=== PATIENT | female | born 1945 | race Hispanic/Latino ===

== ENCOUNTER 2019-01-29 16:21 | Inpatient (IN) | payer MEDICARE ==
[2019-01-29 23:44] LABS: Hematocrit 38.1 % (30.3-42.9); Hemoglobin 12.7 gm/dl (10.1-14.3); Mean Corpuscular HGB Conc 33 % (30-34); Mean Corpuscular Volume 96 fl (79-97); Platelet Count 303 K/mm3 (140-440); Red Blood Count 3.98 M/mm3 (3.65-5.03); Red Cell Distribution Width 16.9 % (13.2-15.2)
[2019-01-30 01:39] LABS: Basophils % (Manual) 0 % (0.0-1.8); Eosinophils % (Manual) 0 % (0.0-4.3); Total Cells Counted 100
[2019-01-30 01:40] LABS: RBC Morphology Normal
[2019-01-30 03:10] LABS: Alanine Aminotransferase 27 units/L (7-56); Albumin 3.5 g/dL (3.9-5); BUN/Creatinine Ratio 58; Blood Urea Nitrogen 35 mg/dL (7-17); Calcium 8.7 mg/dL (8.4-10.2); HDL Cholesterol 106 mg/dL (40-59); Hemolysis Index 4; LDL Cholesterol,Direct 115 mg/dL (50-130)
[2019-01-30] MEDS ORDERED: HALOPERIDOL LACTATE 5 MG/1 ML INJ IM PRN (04:50)
[2019-01-30] MEDS ORDERED: LORazepam 2 MG/ML VIAL IM PRN (04:50)
[2019-01-30] MEDS ORDERED: HALOPERIDOL 5 MG TAB PO PRN (04:50)
[2019-01-30] MEDS: LINAGLIPTIN 5 MG TAB PO SCH (08:42)
[2019-01-30] MEDS: ESCITALOPRAM 10 MG TAB PO SCH (09:42)
[2019-01-30] MEDS: NICOTINE 14 MG/24 HR PATCH TD SCH (09:43)
[2019-01-30] MEDS ORDERED: DULoxetine 30 MG CAP PO SCH (10:00)
[2019-01-30] MEDS ORDERED: clonazePAM 0.5 MG TAB PO SCH (10:00)
--- NOTE | 2019-01-30 11:52 | Consultation ---
History of Present Illness - Reason for Consult Consult date: 01/30/19 - History of Present Illness 73-year-old female past medical history COPD, atrial fibrillation and diabetes mellitus type 2 who presented to the [facility] psych floor with diagnosis of acute psychosis. Consultation has been called for management of the above medical problems. Patient denies any complaints. No chest pain or shortness of breath. No fever or chills. No cough or cold symptoms. Past History Past Medical History: atrial fib, COPD, diabetes Past Surgical History: No surgical history Social history: no significant social history Family history: no significant family history Medications and Allergies Allergies Allergy/AdvReac Type Severity Reaction Status Date / Time No Known Allergies Allergy Unverified 01/29/19 17:39 Home Medications Medication Instructions Recorded Confirmed Last Taken Type Apixaban [Eliquis] 5 mg PO BID 01/29/19 01/29/19 History Aspirin BABY CHEW TAB 81 mg PO DAILY 01/29/19 Unknown History Atorvastatin [Lipitor] 40 mg PO HS 01/29/19 Unknown History Benzonatate [Tessalon Perles] 01/29/19 Unknown History Diltiazem HCl [Tiazac] 240 mg PO DAILY 01/29/19 Unknown History Escitalopram Oxalate [Lexapro] 20 mg PO HS 01/29/19 Unknown History Levemir VIAL 10 units SUB-Q HS 01/29/19 Unknown History Minocin 100 mg PO BID 01/29/19 Unknown History Omeprazole 40 mg PO HS 01/29/19 Unknown History Potassium 10 meq PO DAILY 01/29/19 Unknown History Saccharomyces Boulardii [Probiotic] 150 mg PO DAILY 01/29/19 Unknown History Sitagliptin Phosphate [Januvia] 100 mg PO HS 01/29/19 Unknown History predniSONE [Deltasone] 50 mg PO DAILY 01/29/19 Unknown History Active Meds: Active Medications Clonazepam (Klonopin) 0.5 mg PO BID [facility] Last Admin: 01/30/19 09:42 Dose: 0.5 mg Documented by: Duloxetine HCl (Cymbalta) 60 mg PO QDAY [facility] Last Admin: 01/30/19 09:42 Dose: 60 mg Documented by: Escitalopram Oxalate (Lexapro) 10 mg PO QDAY [facility] Last Admin: 01/30/19 09:42 Dose: 10 mg Documented by: Haloperidol (Haldol) 5 mg PO Q6H PRN PRN Reason: Agitation Haloperidol Lactate (Haldol) 5 mg IM Q6H PRN PRN Reason: Agitation Linagliptin (Tradjenta) 5 mg PO QDDIAB [facility] Last Admin: 01/30/19 08:42 Dose: 5 mg Documented by: Lorazepam (Ativan) 2 mg IM Q6H PRN PRN Reason: Agitation Nicotine (Habitrol) 14 mg TD QDAY [facility] Last Admin: 01/30/19 09:43 Dose: 14 mg Documented by: Review of Systems All systems: negative Exam - Constitutional Vitals: Temp Pulse Resp BP Pulse Ox 98.0 F 104 H 116/59 96 01/30/19 10:43 01/30/19 10:43 01/30/19 10:43 01/30/19 10:43 General appearance: Present: no acute distress, well-nourished - EENT Eyes: Present: PERRL ENT: hearing intact, clear oral mucosa - Neck Neck: Present: supple, normal ROM - Respiratory Respiratory effort: normal Respiratory: bilateral: CTA - Cardiovascular Heart Sounds: Present: S1 & S2. Absent: rub, click - Extremities Extremities: pulses symmetrical, No edema Peripheral Pulses: within normal limits - Abdominal General gastrointestinal: Present: soft, non-tender, non-distended, normal bowel sounds Female genitourinary: Present: normal - Integumentary Integumentary: Present: clear, warm, dry - Musculoskeletal Musculoskeletal: gait normal, strength equal bilaterally - Psychiatric Psychiatric: appropriate mood/affect, intact judgment & insight - Neurologic Neurologic: CNII-XII intact, moves all extremities Results - Labs CBC & Chem 7: 01/29/19 23:08 01/29/19 23:08 Labs: Abnormal lab results 01/29/19 01/29/19 01/29/19 Range/Units 23:08 23:08 23:08 WBC 17.2 H (4.5-11.0) K/mm3 RDW 16.9 H (13.2-15.2) % Seg Neuts % (Manual) 92.0 H (40.0-70.0) % Lymphocytes % (Manual) 5.0 L (13.4-35.0) % Seg Neutrophils # Man 15.8 H (1.8-7.7) K/mm3 Lymphocytes # (Manual) 0.9 L (1.2-5.4) K/mm3 Sodium 136 L (137-145) mmol/L Chloride 96.7 L (98-107) mmol/L BUN 35 H (7-17) mg/dL Creatinine 0.6 L (0.7-1.2) mg/dL Glucose 435 H (65-100) mg/dL POC Glucose (70-105) Hemoglobin A1c 7.4 H (4-6) % Total Protein 5.4 L (6.3-8.2) g/dL Albumin 3.5 L (3.9-5) g/dL Triglycerides 150 H (2-149) mg/dL Cholesterol 212 H (50-199) mg/dL HDL Cholesterol 106 H (40-59) mg/dL 01/30/19 Range/Units 07:54 WBC (4.5-11.0) K/mm3 RDW (13.2-15.2) % Seg Neuts % (Manual) (40.0-70.0) % Lymphocytes % (Manual) (13.4-35.0) % Seg Neutrophils # Man (1.8-7.7) K/mm3 Lymphocytes # (Manual) (1.2-5.4) K/mm3 Sodium (137-145) mmol/L Chloride (98-107) mmol/L BUN (7-17) mg/dL Creatinine (0.7-1.2) mg/dL Glucose (65-100) mg/dL POC Glucose 312 H (70-105) Hemoglobin A1c (4-6) % Total Protein (6.3-8.2) g/dL Albumin (3.9-5) g/dL Triglycerides (2-149) mg/dL Cholesterol (50-199) mg/dL HDL Cholesterol (40-59) mg/dL Assessment and Plan Paroxysmal atrial fibrillation. Continue apixaban. Monitor for rate control. Continue diltiazem. COPD. Compensated. Continue bronchodilators and nebulizers as needed. Diabetes mellitus type 2. Continue Levemir 10 units at bedtime along with Januvia. Also, continue Accu-Cheks and sliding scale. Hyperlipidemia. Continue Lipitor. GERD. Continue omeprazole. Acute psychosis. Per psychiatry.
[2019-01-30] MEDS ORDERED: DEXTROSE 50% IN WATER (25GM) 50 ML SYRINGE IV PRN (14:28)
[2019-01-30] MEDS ORDERED: INSULIN REGULAR, HUMAN 100 UNITS/1 ML SUB-Q ONE (17:26)
[2019-01-30] MEDS: INSULIN REGULAR, HUMAN 100 UNITS/1 ML SUB-Q SCH ×2 (17:52→21:34)
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
[2019-01-30] MEDS: MELATONIN 5 MG TAB PO SCH (21:32)
[2019-01-30] MEDS: risperiDONE 0.25 MG TAB PO SCH (21:32)
[2019-01-31] MEDS: risperiDONE 0.25 MG TAB PO SCH ×2 (09:08→21:22)
[2019-01-31] MEDS: LINAGLIPTIN 5 MG TAB PO SCH (09:09)
[2019-01-31] MEDS: INSULIN REGULAR, HUMAN 100 UNITS/1 ML SUB-Q SCH ×4 (09:09→21:51)
[2019-01-31] MEDS: NICOTINE 14 MG/24 HR PATCH TD SCH (09:10)
[2019-01-31] MEDS: ESCITALOPRAM 10 MG TAB PO SCH (09:10)
--- NOTE | 2019-01-31 21:00 | Progress Note ---
Subjective Date of service: 01/31/19 Principal diagnosis: ?Acute Psychosis Subjective Comment: Patient is calm and pleasant this morning. She is cooperative with cares. She denies SI/HI/AVH/Paranoia. She is alert, fully oriented and engages in long meaningful conversation. MSE Orientation: time, place, person Affect: flat Mood: sad Thought content: wnl Thought Process: Intact Perceptions: none Speech: normal rate and pattern Concentration: focused Motor activity: normal Level of consciousness: alert Memory: Intact Sleep Symptoms: None Appetite: decreased Interaction: cooperative Objective - Criteria for Continued Treatment Criteria for Continued Treatment: Understanding Diagnosis and need for Medication - Objective Observation Participation Level: Moderate Assessment and Plan - Patient Problems (1) Unspecified psychosis Current Visit: Yes Status: Acute Plan to address problem: Patient will be admitted for inpatient psychiatric evaluation, medication adjustment and close monitoring The patient's behavior, mood, sleep and appetite will be closely monitored. Patient will be enrolled in individual and group therapeutic sessions and encouraged to attend. Patient will be provided with a safe and structured environment. Patient's physical health needs will be addressed by the Hospitalist. Social Assessment will be completed and the General Practice will work with patient and family to ensure a suitable and safe disposition Medication adjustment will be made as clinically indicated The patient agreed on the treatment plan, understood the risk, benefit, alternative treatment, potential consequence of no treatment, and gave informed consent. Medications & Allergies - Medications Allergies/Adverse Reactions: Allergies No Known Allergies Allergy (Unverified 01/29/19 17:39) Home Medications: Home Medications Medication Instructions Recorded Confirmed Last Taken Type Atorvastatin [Lipitor] 40 mg PO HS 01/29/19 01/31/19 01/28/19 History Diltiazem HCl [Tiazac] 240 mg PO DAILY 01/29/19 01/31/19 01/28/19 History Minocin 100 mg PO BID 01/29/19 01/31/19 01/28/19 History Omeprazole 40 mg PO HS 01/29/19 01/31/19 01/28/19 History Potassium 10 meq PO DAILY 01/29/19 01/31/19 01/28/19 History Sitagliptin Phosphate [Januvia] 100 mg PO HS 01/29/19 01/31/19 01/28/19 History predniSONE [Deltasone] 50 mg PO DAILY 01/29/19 01/31/19 01/28/19 History Advair Diskus 500-50 mcg 1 puff INHALATION BID 01/31/19 01/31/19 01/27/19 History Albuterol 0.63% NEBS 3 ml INHALATION BID 01/31/19 01/31/19 01/28/19 History Albuterol Sulfate [Proair 90 mcg INHALATION BID 01/31/19 01/31/19 01/28/19 History Respiclick] Escitalopram Oxalate 10 mg PO DAILY 01/31/19 01/31/19 01/28/19 History Spironolact/Hydrochlorothiazid 25 mg PO DAILY 01/31/19 01/31/19 01/28/19 History Active Medications: Generic Name Dose Route Start Last Admin Trade Name Freq PRN Reason Stop Dose Admin Dextrose 50 ml 01/30/19 14:28 D50w (25gm) Syringe IV PRN PRN Hypoglycemia Escitalopram Oxalate 10 mg 01/30/19 10:00 01/31/19 09:10 Lexapro PO 10 mg QDAY [facility] Administration Haloperidol 5 mg 01/30/19 04:50 Haldol PO Q6H PRN Agitation Haloperidol Lactate 5 mg 01/30/19 04:50 Haldol IM Q6H PRN Agitation Insulin Human Regular 0 units 01/30/19 16:30 01/31/19 17:22 Humulin R SUB-Q 1 units ACHS [facility] Administration Protocol Linagliptin 5 mg 01/30/19 08:00 01/31/19 09:09 Tradjenta PO 5 mg QDDIAB [facility] Administration Lorazepam 2 mg 01/30/19 04:50 Ativan IM Q6H PRN Agitation Melatonin 5 mg 01/30/19 22:00 01/30/19 21:32 Melatonin PO 5 mg QHS [facility] Administration Nicotine 14 mg 01/30/19 10:00 01/31/19 09:10 Habitrol TD 14 mg QDAY [facility] Administration Risperidone 0.5 mg 01/30/19 22:00 01/31/19 09:08 Risperdal PO 0.5 mg BID [facility] Administration
[2019-01-31] MEDS: MELATONIN 5 MG TAB PO SCH ×2 (21:22→22:00)
[2019-02-01] MEDS: INSULIN REGULAR, HUMAN 100 UNITS/1 ML SUB-Q SCH ×4 (11:10→22:00)
[2019-02-01] MEDS: risperiDONE 0.25 MG TAB PO SCH ×2 (11:10→22:00)
[2019-02-01] MEDS: NICOTINE 14 MG/24 HR PATCH TD SCH (11:11)
[2019-02-01] MEDS: ESCITALOPRAM 10 MG TAB PO SCH (11:11)
[2019-02-01] MEDS: LINAGLIPTIN 5 MG TAB PO SCH (11:11)
--- NOTE | 2019-02-01 17:22 | Progress Note ---
Subjective Date of service: 02/01/19 Principal diagnosis: Acute Psychosis Subjective Comment: Patient is is calm and pleasant this morning. She is cooperative with cares. She denies SI/HI/AVH/Paranoia. She is alert, fully oriented and engages in long meaningful conversation. MSE Orientation: time, place, person Affect: flat Mood: sad Thought content: wnl Thought Process: Intact Perceptions: none Speech: normal rate and pattern Concentration: focused Motor activity: normal Level of consciousness: alert Memory: Intact Sleep Symptoms: None Appetite: decreased Interaction: cooperative Objective - Criteria for Continued Treatment Criteria for Continued Treatment: Improving Level of Functioning, Stablizing Level of Functioning, Improving Emotional/Socia - Objective Observation Participation Level: Moderate Assessment and Plan - Patient Problems (1) Unspecified psychosis Current Visit: Yes Status: Acute Plan to address problem: Patient will be admitted for inpatient psychiatric evaluation, medication adjustment and close monitoring The patient's behavior, mood, sleep and appetite will be closely monitored. Patient will be enrolled in individual and group therapeutic sessions and encouraged to attend. Patient will be provided with a safe and structured environment. Patient's physical health needs will be addressed by the Hospitalist. Social Assessment will be completed and the Trimming Cutter will work with patient and family to ensure a suitable and safe disposition Medication adjustment will be made as clinically indicated The patient agreed on the treatment plan, understood the risk, benefit, alternative treatment, potential consequence of no treatment, and gave informed consent.
[2019-02-02] MEDS: risperiDONE 0.25 MG TAB PO SCH ×2 (10:12→21:40)
[2019-02-02] MEDS: LINAGLIPTIN 5 MG TAB PO SCH (10:12)
[2019-02-02] MEDS: ESCITALOPRAM 10 MG TAB PO SCH (10:12)
[2019-02-02] MEDS: NICOTINE 14 MG/24 HR PATCH TD SCH (10:13)
[2019-02-02] MEDS: INSULIN REGULAR, HUMAN 100 UNITS/1 ML SUB-Q SCH ×4 (10:13→22:39)
--- NOTE | 2019-02-02 15:08 | Progress Note ---
Subjective Date of service: 02/02/19 Principal diagnosis: Acute Psychosis Subjective Comment: Patient is is calm and pleasant this morning. She is cooperative with cares. She denies SI/HI/AVH/Paranoia. She is alert, fully oriented and engages in long meaningful conversation. Patient reportedly has firearms at home. MSE Orientation: time, place, person Affect: flat Mood: sad Thought content: wnl Thought Process: Intact Perceptions: none Speech: normal rate and pattern Concentration: focused Motor activity: normal Level of consciousness: alert Memory: Intact Sleep Symptoms: None Appetite: decreased Interaction: cooperative Objective - Criteria for Continued Treatment Criteria for Continued Treatment: Improving Level of Functioning, Stablizing Level of Functioning, Improving Emotional/Socia - Objective Observation Participation Level: Moderate Assessment and Plan - Patient Problems (1) Unspecified psychosis Current Visit: Yes Status: Acute Plan to address problem: Patient will be admitted for inpatient psychiatric evaluation, medication adjustment and close monitoring The patient's behavior, mood, sleep and appetite will be closely monitored. Patient will be enrolled in individual and group therapeutic sessions and encouraged to attend. Patient will be provided with a safe and structured environment. Patient's physical health needs will be addressed by the Hospitalist. Social Assessment will be completed and the Technical Lead will work with patient and family to ensure a suitable and safe disposition Medication adjustment will be made as clinically indicated Due to her history of paranoia, I have advised patient to not keep firearms at home The patient agreed on the treatment plan, understood the risk, benefit, alternative treatment, potential consequence of no treatment, and gave informed consent. Medications & Allergies - Medications Allergies/Adverse Reactions: Allergies No Known Allergies Allergy (Unverified 01/29/19 17:39) Home Medications: Home Medications Medication Instructions Recorded Confirmed Last Taken Type Atorvastatin [Lipitor] 40 mg PO HS 01/29/19 01/31/19 01/28/19 History Diltiazem HCl [Tiazac] 240 mg PO DAILY 01/29/19 01/31/19 01/28/19 History Minocin 100 mg PO BID 01/29/19 01/31/19 01/28/19 History Omeprazole 40 mg PO HS 01/29/19 01/31/19 01/28/19 History Potassium 10 meq PO DAILY 01/29/19 01/31/19 01/28/19 History Sitagliptin Phosphate [Januvia] 100 mg PO HS 01/29/19 01/31/19 01/28/19 History predniSONE [Deltasone] 50 mg PO DAILY 01/29/19 01/31/19 01/28/19 History Advair Diskus 500-50 mcg 1 puff INHALATION BID 01/31/19 01/31/19 01/27/19 History Albuterol 0.63% NEBS 3 ml INHALATION BID 01/31/19 01/31/19 01/28/19 History Albuterol Sulfate [Proair 90 mcg INHALATION BID 01/31/19 01/31/19 01/28/19 History Respiclick] Escitalopram Oxalate 10 mg PO DAILY 01/31/19 01/31/19 01/28/19 History Spironolact/Hydrochlorothiazid 25 mg PO DAILY 01/31/19 01/31/19 01/28/19 History Active Medications: Generic Name Dose Route Start Last Admin Trade Name Freq PRN Reason Stop Dose Admin Dextrose 50 ml 01/30/19 14:28 D50w (25gm) Syringe IV PRN PRN Hypoglycemia Escitalopram Oxalate 10 mg 01/30/19 10:00 02/02/19 10:12 Lexapro PO 10 mg QDAY [place] Administration Haloperidol 5 mg 01/30/19 04:50 Haldol PO Q6H PRN Agitation Haloperidol Lactate 5 mg 01/30/19 04:50 Haldol IM Q6H PRN Agitation Insulin Human Regular 0 units 01/30/19 16:30 02/02/19 10:13 Humulin R SUB-Q Not Given ACHS AMERICA Protocol Linagliptin 5 mg 01/30/19 08:00 02/02/19 10:12 Tradjenta PO 5 mg QDDIAB [place] Administration Lorazepam 2 mg 01/30/19 04:50 Ativan IM Q6H PRN Agitation Melatonin 5 mg 01/30/19 22:00 01/31/19 22:00 Melatonin PO 5 mg QHS [place] Administration Nicotine 14 mg 01/30/19 10:00 02/02/19 10:13 Habitrol TD 14 mg QDAY [place] Administration Risperidone 0.5 mg 01/30/19 22:00 02/02/19 10:12 Risperdal PO 0.5 mg BID AMERICA Administration
[2019-02-02] MEDS: MELATONIN 5 MG TAB PO SCH (21:40)
[2019-02-03] MEDS: INSULIN REGULAR, HUMAN 100 UNITS/1 ML SUB-Q SCH ×3 (08:17→17:05)
[2019-02-03] MEDS: LINAGLIPTIN 5 MG TAB PO SCH (08:18)
[2019-02-03] MEDS: ESCITALOPRAM 10 MG TAB PO SCH (10:49)
[2019-02-03] MEDS: risperiDONE 0.25 MG TAB PO SCH ×2 (10:49→22:44)
[2019-02-03] MEDS: NICOTINE 14 MG/24 HR PATCH TD SCH (10:50)
--- NOTE | 2019-02-03 11:25 | Progress Note ---
Subjective Date of service: 02/03/19 Principal diagnosis: Acute Psychosis Subjective Comment: Patient is is calm and pleasant this morning. She is cooperative with cares. She denies SI/HI/AVH/Paranoia. She is alert, fully oriented and engages in long meaningful conversation. Patient reportedly has firearms at home which her family have kept in a safe place. MSE Orientation: time, place, person Affect: flat Mood: sad Thought content: wnl Thought Process: Intact Perceptions: none Speech: normal rate and pattern Concentration: focused Motor activity: normal Level of consciousness: alert Memory: Intact Sleep Symptoms: None Appetite: decreased Interaction: cooperative Objective - Criteria for Continued Treatment Criteria for Continued Treatment: Improving Level of Functioning, Stablizing Level of Functioning, Improving Emotional/Socia - Objective Observation Participation Level: Moderate Assessment and Plan - Patient Problems (1) Unspecified psychosis Current Visit: Yes Status: Acute Plan to address problem: Patient will be admitted for inpatient psychiatric evaluation, medication adjustment and close monitoring The patient's behavior, mood, sleep and appetite will be closely monitored. Patient will be enrolled in individual and group therapeutic sessions and encouraged to attend. Patient will be provided with a safe and structured environment. Patient's physical health needs will be addressed by the Hospitalist. Social Assessment will be completed and the Carpenters will work with patient and family to ensure a suitable and safe disposition Medication adjustment will be made as clinically indicated Due to her history of paranoia, I have advised patient to not keep firearms at home The patient agreed on the treatment plan, understood the risk, benefit, alternative treatment, potential consequence of no treatment, and gave informed consent.
[2019-02-03] MEDS: MELATONIN 5 MG TAB PO SCH (22:43)
[2019-02-04] MEDS: INSULIN REGULAR, HUMAN 100 UNITS/1 ML SUB-Q SCH ×5 (00:21→21:24)
[2019-02-04] MEDS: LINAGLIPTIN 5 MG TAB PO SCH (08:32)
[2019-02-04] MEDS: ESCITALOPRAM 10 MG TAB PO SCH (10:00)
[2019-02-04] MEDS: risperiDONE 0.25 MG TAB PO SCH ×2 (10:01→21:23)
[2019-02-04] MEDS: NICOTINE 14 MG/24 HR PATCH TD SCH (10:01)
[2019-02-04] MEDS: MELATONIN 5 MG TAB PO SCH (21:23)
[2019-02-05] MEDS: INSULIN REGULAR, HUMAN 100 UNITS/1 ML SUB-Q SCH ×4 (07:59→21:25)
[2019-02-05] MEDS: LINAGLIPTIN 5 MG TAB PO SCH (08:10)
[2019-02-05] MEDS: risperiDONE 0.25 MG TAB PO SCH ×2 (09:23→21:25)
[2019-02-05] MEDS: ESCITALOPRAM 10 MG TAB PO SCH (09:24)
[2019-02-05] MEDS: NICOTINE 14 MG/24 HR PATCH TD SCH (09:24)
--- NOTE | 2019-02-05 17:34 | Progress Note ---
Subjective Date of service: 02/04/19 Principal diagnosis: Acute Psychosis Subjective Comment: Patient is is calm and pleasant this morning. She is cooperative with cares. She denies SI/HI/AVH/Paranoia. She is alert, fully oriented and engages in long meaningful conversation. MSE Orientation: time, place, person Affect: flat Mood: sad Thought content: wnl Thought Process: Intact Perceptions: none Speech: normal rate and pattern Concentration: focused Motor activity: normal Level of consciousness: alert Memory: Intact Sleep Symptoms: None Appetite: decreased Interaction: cooperative Objective - Criteria for Continued Treatment Criteria for Continued Treatment: Improving Level of Functioning, Stablizing Level of Functioning, Improving Emotional/Socia - Objective Observation Participation Level: Moderate Assessment and Plan - Patient Problems (1) Unspecified psychosis Current Visit: Yes Status: Acute Plan to address problem: Patient will be admitted for inpatient psychiatric evaluation, medication adjustment and close monitoring The patient's behavior, mood, sleep and appetite will be closely monitored. Patient will be enrolled in individual and group therapeutic sessions and encouraged to attend. Patient will be provided with a safe and structured environment. Patient's physical health needs will be addressed by the Hospitalist. Social Assessment will be completed and the Pararescue Craftsman will work with patient and family to ensure a suitable and safe disposition Medication adjustment will be made as clinically indicated Due to her history of paranoia, I have advised patient to not keep firearms at home The patient agreed on the treatment plan, understood the risk, benefit, alternative treatment, potential consequence of no treatment, and gave informed consent.
--- NOTE | 2019-02-05 17:36 | Progress Note ---
Subjective Date of service: 02/05/19 Principal diagnosis: Acute Psychosis Subjective Comment: Patient is is calm and pleasant this morning. She is cooperative with cares. She denies SI/HI/AVH/Paranoia. She is alert, fully oriented and engages in long meaningful conversation. MSE Orientation: time, place, person Affect: Normal Mood: Good Thought content: wnl Thought Process: Intact Perceptions: none Speech: normal rate and pattern Concentration: focused Motor activity: normal Level of consciousness: alert Memory: Intact Sleep Symptoms: None Appetite: WNL Interaction: cooperative Objective - Criteria for Continued Treatment Criteria for Continued Treatment: Improving Level of Functioning, Stablizing Level of Functioning, Improving Emotional/Socia - Objective Observation Participation Level: Moderate Assessment and Plan - Patient Problems (1) Unspecified psychosis Current Visit: Yes Status: Acute Plan to address problem: Patient will be admitted for inpatient psychiatric evaluation, medication adjustment and close monitoring The patient's behavior, mood, sleep and appetite will be closely monitored. Patient will be enrolled in individual and group therapeutic sessions and encouraged to attend. Patient will be provided with a safe and structured environment. Patient's physical health needs will be addressed by the Hospitalist. Social Assessment will be completed and the Radiology Supervisor will work with patient and family to ensure a suitable and safe disposition Medication adjustment will be made as clinically indicated Due to her history of paranoia, I have advised patient to not keep firearms at home The patient agreed on the treatment plan, understood the risk, benefit, al ternative treatment, potential consequence of no treatment, and gave informed consent. Medications & Allergies - Medications Allergies/Adverse Reactions: Allergies No Known Allergies Allergy (Unverified 01/29/19 17:39) Home Medications: Home Medications Medication Instructions Recorded Confirmed Last Taken Type Atorvastatin [Lipitor] 40 mg PO HS 01/29/19 01/31/19 01/28/19 History Diltiazem HCl [Tiazac] 240 mg PO DAILY 01/29/19 01/31/19 01/28/19 History Minocin 100 mg PO BID 01/29/19 01/31/19 01/28/19 History Omeprazole 40 mg PO HS 01/29/19 01/31/19 01/28/19 History Potassium 10 meq PO DAILY 01/29/19 01/31/19 01/28/19 History Sitagliptin Phosphate [Januvia] 100 mg PO HS 01/29/19 01/31/19 01/28/19 History predniSONE [Deltasone] 50 mg PO DAILY 01/29/19 01/31/19 01/28/19 History Advair Diskus 500-50 mcg 1 puff INHALATION BID 01/31/19 01/31/19 01/27/19 History Albuterol 0.63% NEBS 3 ml INHALATION BID 01/31/19 01/31/19 01/28/19 History Albuterol Sulfate [Proair 90 mcg INHALATION BID 01/31/19 01/31/19 01/28/19 History Respiclick] Escitalopram Oxalate 10 mg PO DAILY 01/31/19 01/31/19 01/28/19 History Spironolact/Hydrochlorothiazid 25 mg PO DAILY 01/31/19 01/31/19 01/28/19 History Active Medications: Generic Name Dose Route Start Last Admin Trade Name Freq PRN Reason Stop Dose Admin Dextrose 50 ml 01/30/19 14:28 D50w (25gm) Syringe IV PRN PRN Hypoglycemia Escitalopram Oxalate 10 mg 01/30/19 10:00 02/05/19 09:24 Lexapro PO 10 mg QDAY [place] Administration Haloperidol 5 mg 01/30/19 04:50 Haldol PO Q6H PRN Agitation Haloperidol Lactate 5 mg 01/30/19 04:50 Haldol IM Q6H PRN Agitation Insulin Human Regular 0 units 01/30/19 16:30 02/05/19 17:02 Humulin R SUB-Q 2 units ACHS [place] Administration Protocol Linagliptin 5 mg 01/30/19 08:00 02/05/19 08:10 Tradjenta PO 5 mg QDDIAB [place] Administration Lorazepam 2 mg 01/30/19 04:50 Ativan IM Q6H PRN Agitation Melatonin 5 mg 01/30/19 22:00 02/04/19 21:23 Melatonin PO 5 mg QHS [place] Administration Nicotine 14 mg 01/30/19 10:00 02/05/19 09:24 Habitrol TD 14 mg QDAY [place] Administration Risperidone 0.5 mg 01/30/19 22:00 02/05/19 09:23 Risperdal PO 0.5 mg BID AMERICA Administration
[2019-02-05] MEDS: MELATONIN 5 MG TAB PO SCH (21:25)
[2019-02-05] MEDS ORDERED: ALBUTEROL 2.5 MG/3 ML NEBU IH PRN (21:39)
[2019-02-06] MEDS: INSULIN REGULAR, HUMAN 100 UNITS/1 ML SUB-Q SCH ×4 (07:30→22:10)
[2019-02-06] MEDS: ARFORMOTEROL 15 MCG/2 ML NEBU IH SCH ×2 (08:05→21:30)
[2019-02-06] MEDS: BUDESONIDE 0.5 MG/2 ML NEBU IH SCH ×2 (08:05→21:30)
--- NOTE | 2019-02-06 09:14 | XRay Report ---
CHEST 1 VIEW 8:48 AM INDICATION / CLINICAL INFORMATION: PNEUMONIA. COMPARISON: None available. FINDINGS: SUPPORT DEVICES: None. HEART / MEDIASTINUM: The heart size is normal. There is mild prominence of the central pulmonary vess els. There is calcification in the aortic arch without aneurysm. LUNGS / PLEURA: There is mild diffuse interstitial lung disease. The lungs are hyperinflated. No pneu mothorax. ADDITIONAL FINDINGS: There are surgical changes in the lower cervical spine. IMPRESSION: Mild pulmonary edema superimposed on COPD. Signer Name: Edson Petty MD Signed: 02/06/2019 9:10 AM Workstation Name: [id number]
--- NOTE | 2019-02-06 09:17 | Progress Note ---
Subjective Date of service: 02/06/19 Principal diagnosis: Acute Psychosis Subjective Comment: Patient is is calm and pleasant this morning. She is cooperative with cares. She denies SI/HI/AVH/Paranoia. She is alert, fully oriented and engages in long meaningful conversation. MSE Orientation: time, place, person Affect: Normal Mood: Good Thought content: wnl Thought Process: Intact Perceptions: none Speech: normal rate and pattern Concentration: focused Motor activity: normal Level of consciousness: alert Memory: Intact Sleep Symptoms: None Appetite: WNL Interaction: cooperative Objective - Criteria for Continued Treatment Criteria for Continued Treatment: Improving Level of Functioning - Objective Observation Participation Level: Moderate Assessment and Plan - Patient Problems (1) Unspecified psychosis Current Visit: Yes Status: Acute Plan to address problem: Patient will be admitted for inpatient psychiatric evaluation, medication adjustment and close monitoring The patient's behavior, mood, sleep and appetite will be closely monitored. Patient will be enrolled in individual and group therapeutic sessions and encouraged to attend. Patient will be provided with a safe and structured environment. Patient's physical health needs will be addressed by the Hospitalist. Social Assessment will be completed and the Auto Body Repair Technician will work with patient and family to ensure a suitable and safe disposition Medication adjustment will be made as clinically indicated Due to her history of paranoia, I have advised patient to not keep firearms at home The patient agreed on the treatment plan, understood the risk, benefit, alternative treatment, potential consequence of no treatment, and gave informed consent.
[2019-02-06] MEDS: LINAGLIPTIN 5 MG TAB PO SCH (09:51)
[2019-02-06] MEDS: NICOTINE 14 MG/24 HR PATCH TD SCH (09:51)
[2019-02-06] MEDS: ESCITALOPRAM 10 MG TAB PO SCH (09:51)
[2019-02-06] MEDS: risperiDONE 0.25 MG TAB PO SCH ×2 (09:52→22:09)
[2019-02-06 20:05] LABS: Hematocrit 32.7 % (30.3-42.9); Hemoglobin 11.1 gm/dl (10.1-14.3); Mean Corpuscular HGB Conc 34 % (30-34); Mean Corpuscular Volume 96 fl (79-97); Platelet Count 291 K/mm3 (140-440); Red Blood Count 3.41 M/mm3 (3.65-5.03); Red Cell Distribution Width 16.1 % (13.2-15.2)
[2019-02-06] MEDS: MELATONIN 5 MG TAB PO SCH (22:09)
[2019-02-07] MEDS: INSULIN REGULAR, HUMAN 100 UNITS/1 ML SUB-Q SCH ×4 (08:49→22:00)
[2019-02-07] MEDS: LINAGLIPTIN 5 MG TAB PO SCH (08:50)
[2019-02-07] MEDS: ESCITALOPRAM 10 MG TAB PO SCH (09:30)
[2019-02-07] MEDS: NICOTINE 14 MG/24 HR PATCH TD SCH (09:30)
[2019-02-07] MEDS: risperiDONE 0.25 MG TAB PO SCH ×2 (09:30→23:55)
[2019-02-07] MEDS: ARFORMOTEROL 15 MCG/2 ML NEBU IH SCH ×2 (11:40→22:06)
[2019-02-07] MEDS: BUDESONIDE 0.5 MG/2 ML NEBU IH SCH ×2 (11:40→22:06)
[2019-02-07] MEDS: MELATONIN 5 MG TAB PO SCH (22:55)
[2019-02-08] MEDS: BUDESONIDE 0.5 MG/2 ML NEBU IH SCH (08:10)
[2019-02-08] MEDS: ARFORMOTEROL 15 MCG/2 ML NEBU IH SCH (08:10)
[2019-02-08] MEDS: ESCITALOPRAM 10 MG TAB PO SCH (09:37)
[2019-02-08] MEDS: NICOTINE 14 MG/24 HR PATCH TD SCH (09:38)
[2019-02-08] MEDS: LINAGLIPTIN 5 MG TAB PO SCH (09:38)
[2019-02-08] MEDS: risperiDONE 0.25 MG TAB PO SCH (09:38)
[2019-02-08] MEDS: INSULIN REGULAR, HUMAN 100 UNITS/1 ML SUB-Q SCH ×2 (09:38→12:30)
--- NOTE | 2019-02-08 11:07 | Discharge Summary ---
Providers - Providers Date of Admission: 01/29/19 18:35 Date of discharge: 02/08/19 Attending physician: SINDHU AVELAR MD 01/30/19 07:57 Consult to Physician [CONS] Routine Comment: Consulting Provider: JAYRO SIERRA Physician Instructions: Reason For Exam: H&P MEDICAL MANAGEMENT 01/30/19 12:42 Consult to Dietitian/Nutrition [CONS] Routine Physician Instructions: Reason For Exam: Reason for Consult: Diet education Hospitalization Reason for admission: Unable to care for self. Agitation Condition: Stable Hospital course: The patient was provided inpatient psychiatric treatment with safe and supportive environment, group therapy, individual counseling, psychiatric medication, medication adjustment, adverse effect monitor, medical evaluation, medical treatment, social service assessment, family/social support meeting, placement assessment and psycho-education. The patients mood, anxiety, thoughts, stress management skill, cognition, impulse/anger control, motivation, understanding of disease, compliance to treatment and appreciation on family/social support are improved and stabilized. At the time of discharge, the patient had no suicidal ideas, no homicidal ideas, no aggressive thoughts, no endangering behavior and no debilitating adverse effects. Disposition: DC- TO HOME OR SELFCARE Allergies/Adverse Reactions: Allergies No Known Allergies Allergy (Unverified 01/29/19 17:39) Vital Signs: Last Vital Signs Temp 98.2 F 02/07/19 21:00 Pulse 88 02/08/19 08:10 Resp 18 02/08/19 08:10 BP 129/60 02/07/19 21:00 Pulse Ox 99 02/08/19 09:24 Last Lab: Laboratory Last Values WBC 8.1 K/mm3 (4.5-11.0) 02/06/19 19:42 RBC 3.41 M/mm3 (3.65-5.03) L 02/06/19 19:42 Hgb 11.1 gm/dl (10.1-14.3) 02/06/19 19:42 Hct 32.7 % (30.3-42.9) 02/06/19 19:42 MCV 96 fl (79-97) 02/06/19 19:42 MCH 33 pg (28-32) H 02/06/19 19:42 MCHC 34 % (30-34) 02/06/19 19:42 RDW 16.1 % (13.2-15.2) H 02/06/19 19:42 Plt Count 291 K/mm3 (140-440) 02/06/19 19:42 Lymph % (Auto) Security Operations Engineer 02/06/19 19:42 [place] % (Auto) Security Operations Engineer 02/06/19 19:42 Eos % (Auto) Security Operations Engineer 02/06/19 19:42 Baso % (Auto) Security Operations Engineer 02/06/19 19:42 Lymph # Security Operations Engineer 02/06/19 19:42 [place] # Security Operations Engineer 02/06/19 19:42 Eos # Security Operations Engineer 02/06/19 19:42 Baso # Security Operations Engineer 02/06/19 19:42 Add Manual Diff Complete 01/29/19 23:08 Total Counted 100 01/29/19 23:08 Seg Neutrophils % Security Operations Engineer 02/06/19 19:42 Seg Neuts % (Manual) 92.0 % (40.0-70.0) H 01/29/19 23:08 Band Neutrophils % 0 % 01/29/19 23:08 Lymphocytes % (Manual) 5.0 % (13.4-35.0) L 01/29/19 23:08 Reactive Lymphs % (Man) 0 % 01/29/19 23:08 Monocytes % (Manual) 3.0 % (0.0-7.3) 01/29/19 23:08 Eosinophils % (Manual) 0 % (0.0-4.3) 01/29/19 23:08 Basophils % (Manual) 0 % (0.0-1.8) 01/29/19 23:08 Metamyelocytes % 0 % 01/29/19 23:08 Myelocytes % 0 % 01/29/19 23:08 Promyelocytes % 0 % 01/29/19 23:08 Blast Cells % 0 % 01/29/19 23:08 Nucleated RBC % Not Reportable 01/29/19 23:08 Seg Neutrophils # Security Operations Engineer 02/06/19 19:42 Seg Neutrophils # Man 15.8 K/mm3 (1.8-7.7) H 01/29/19 23:08 Band Neutrophils # 0.0 K/mm3 01/29/19 23:08 Lymphocytes # (Manual) 0.9 K/mm3 (1.2-5.4) L 01/29/19 23:08 Abs React Lymphs (Man) 0.0 K/mm3 01/29/19 23:08 Monocytes # (Manual) 0.5 K/mm3 (0.0-0.8) 01/29/19 23:08 Eosinophils # (Manual) 0.0 K/mm3 (0.0-0.4) 01/29/19 23:08 Basophils # (Manual) 0.0 K/mm3 (0.0-0.1) 01/29/19 23:08 Metamyelocytes # 0.0 K/mm3 01/29/19 23:08 Myelocytes # 0.0 K/mm3 01/29/19 23:08 Promyelocytes # 0.0 K/mm3 01/29/19 23:08 Blast Cells # 0.0 K/mm3 01/29/19 23:08 WBC Morphology Not Reportable 01/29/19 23:08 Hypersegmented Neuts Not Reportable 01/29/19 23:08 Hyposegmented Neuts Not Reportable 01/29/19 23:08 Hypogranular Neuts Not Reportable 01/29/19 23:08 Smudge Cells Not Reportable 01/29/19 23:08 Toxic Granulation Not Reportable 01/29/19 23:08 Toxic Vacuolation Not Reportable 01/29/19 23:08 Dohle Bodies Not Reportable 01/29/19 23:08 Pelger-Huet Anomaly Not Reportable 01/29/19 23:08 Minnie Rods Not Reportable 01/29/19 23:08 Platelet Estimate Not Reportable 01/29/19 23:08 Clumped Platelets Not Reportable 01/29/19 23:08 Plt Clumps, EDTA Not Reportable 01/29/19 23:08 Large Platelets Not Reportable 01/29/19 23:08 Giant Platelets Not Reportable 01/29/19 23:08 Platelet Satelliting Not Reportable 01/29/19 23:08 Plt Morphology Comment Not Reportable 01/29/19 23:08 RBC Morphology Normal 01/29/19 23:08 Dimorphic RBCs Not Reportable 01/29/19 23:08 Polychromasia Not Reportable 01/29/19 23:08 Hypochromasia Not Reportable 01/29/19 23:08 Poikilocytosis Not Reportable 01/29/19 23:08 Anisocytosis Not Reportable 01/29/19 23:08 Microcytosis Not Reportable 01/29/19 23:08 Macrocytosis Not Reportable 01/29/19 23:08 Spherocytes Not Reportable 01/29/19 23:08 Pappenheimer Bodies Not Reportable 01/29/19 23:08 Sickle Cells Not Reportable 01/29/19 23:08 Target Cells Not Reportable 01/29/19 23:08 Tear Drop Cells Not Reportable 01/29/19 23:08 Ovalocytes Not Reportable 01/29/19 23:08 Helmet Cells Not Reportable 01/29/19 23:08 [place] Bodies Not Reportable 01/29/19 23:08 [place] Rings Not Reportable 01/29/19 23:08 Tai Cells Not Reportable 01/29/19 23:08 Bite Cells Not Reportable 01/29/19 23:08 Crenated Cell Not Reportable 01/29/19 23:08 Elliptocytes Not Reportable 01/29/19 23:08 Acanthocytes (Spur) Not Reportable 01/29/19 23:08 Rouleaux Not Reportable 01/29/19 23:08 Hemoglobin C Crystals Not Reportable 01/29/19 23:08 Schistocytes Not Reportable 01/29/19 23:08 Malaria parasites Not Reportable 01/29/19 23:08 Bobby Bodies Not Reportable 01/29/19 23:08 Hem Pathologist Commnt No 01/29/19 23:08 Sodium 136 mmol/L (137-145) L 01/29/19 23:08 Potassium 3.9 mmol/L (3.6-5.0) 01/29/19 23:08 Chloride 96.7 mmol/L (98-107) L 01/29/19 23:08 Carbon Dioxide 22 mmol/L (22-30) 01/29/19 23:08 Anion Gap 21 mmol/L 01/29/19 23:08 BUN 35 mg/dL (7-17) H 01/29/19 23:08 Creatinine 0.6 mg/dL (0.7-1.2) L 01/29/19 23:08 Estimated GFR > 60 ml/min 01/29/19 23:08 BUN/Creatinine Ratio 58 % 01/29/19 23:08 Glucose 435 mg/dL (65-100) H 01/29/19 23:08 POC Glucose 118 (70-105) H 02/08/19 08:44 Hemoglobin A1c 7.4 % (4-6) H 01/29/19 23:08 Calcium 8.7 mg/dL (8.4-10.2) 01/29/19 23:08 Total Bilirubin 0.20 mg/dL (0.1-1.2) 01/29/19 23:08 AST 16 units/L (5-40) 01/29/19 23:08 ALT 27 units/L (7-56) 01/29/19 23:08 Alkaline Phosphatase 63 units/L (35-129) 01/29/19 23:08 Total Protein 5.4 g/dL (6.3-8.2) L 01/29/19 23:08 Albumin 3.5 g/dL (3.9-5) L 01/29/19 23:08 Albumin/Globulin Ratio 1.8 % 01/29/19 23:08 Triglycerides 150 mg/dL (2-149) H 01/29/19 23:08 Cholesterol 212 mg/dL (50-199) H 01/29/19 23:08 LDL Cholesterol Direct 115 mg/dL (50-130) 01/29/19 23:08 HDL Cholesterol 106 mg/dL (40-59) H 01/29/19 23:08 Cholesterol/HDL Ratio 2.00 % 01/29/19 23:08 - Discharge Diagnoses (1) Unspecified psychosis Status: Acute Core Measure Documentation - Palliative Care Palliative Care/ Comfort Measures: Not Applicable - Core Measures Any of the following diagnoses?: none Exam - Constitutional Vitals: Temp Pulse Resp BP Pulse Ox 98.2 F 88 18 129/60 99 02/07/19 21:00 02/08/19 08:10 02/08/19 08:10 02/07/19 21:00 02/08/19 09:24 General appearance: Present: no acute distress, well-nourished - EENT Eyes: Present: PERRL, EOM intact ENT: hearing intact, clear oral mucosa - Respiratory Respiratory effort: normal Plan Activity: fall precautions Weight Bearing Status: Weight Bear as Tolerated Care Plan Goals: Improve self care Plan of Treatment: Take medications as prescribed and attend out-patient appointments Health Concerns: COPD Assessment: Acute Psychosis Follow up with: MANUEL BONILLA [Other] - 7 Days Prescriptions: Melatonin [Melatonin 5MG TAB] 5 mg PO QHS #30 tablet Arformoterol Nebu [Brovana Nebu] 15 mcg IH Q12HRT #30 ml Nicotine [Habitrol] 14 mg TD QDAY #30 patch ALBUTEROL NEB's [Proventil 0.083% NEBS] 2.5 mg IH Q4HRT PRN #30 nebu PRN Reason: Shortness Of Breath Budesonide [Pulmicort Respules] 0.5 mg IH Q12HRT #60 nebu risperiDONE [RisperDAL] 0.25 mg PO BID #60 tablet
[2019-02-08 13:10] VITALS: BP 105/59
== END 2019-02-08 12:55 | disposition home or self-care (01) | DRG 885 ==
LOC: 5A 18:35
PROVIDERS: ADMIT Psychiatry & Neurology Psychiatry; ATTEND Psychiatry & Neurology Psychiatry
DX: F23 Brief psychotic disorder (principal); J44.9 Chronic obstructive pulmonary disease, unspecified; E11.9 Type 2 diabetes mellitus without complications; K21.9 Gastro-esophageal reflux disease without esophagitis; I48.0 Paroxysmal atrial fibrillation; E78.5 Hyperlipidemia, unspecified; I10 Essential (primary) hypertension; F41.9 Anxiety disorder, unspecified; Z79.01 Long term (current) use of anticoagulants; Z79.899 Other long term (current) drug therapy; Z79.84 Long term (current) use of oral hypoglycemic drugs
CPT/HCPCS: 36415; 71045; 80053; 80061; 82962; 83036; 85007; 85025; 94640; 94760; G0378; J1815